=== PATIENT | male | born 2000 | race Caucasian/White ===

== ENCOUNTER 2020-01-31 16:16 | Emergency (ER) | payer OTHER ==
[~2020-01-31] VITALS: Ht 172.7 cm; Wt 67.8 kg
[2020-01-31] MEDS ORDERED: FLUTISP (17:07)
[2020-01-31] MEDS ORDERED: ALL10TAB29 PO (17:07)
[2020-01-31 17:14] VITALS: BP 135/64
== END 2020-01-31 17:17 | disposition home or self-care (01) ==
LOC: M ED 16:16
DX: H65.112 Acute and subacute allergic otitis media (mucoid) (sanguinous) (serous), left ear (principal); R42 Dizziness and giddiness